=== PATIENT | female | born 1990 | race Hispanic/Latino ===

== ENCOUNTER 2018-05-04 04:39 | Emergency (ER) | payer SELFPAY ==
[2018-05-04 04:54] VITALS: TEMP 98.1
[2018-05-04] MEDS ORDERED: Sodium Chloride 0.9% 1,000 ML IV STA (05:03)
--- NOTE | 2018-05-04 05:23 | ED PDOC ---
HPI: Back Chief Complaint (Provider): Low back pain x 2 days History Per: Patient History/Exam Limitations: no limitations Onset/Duration Of Symptoms: Days Current Symptoms Are (Timing): Still Present Full Body Front + Back: 1 - Pain 2 - Radiation 3 - Radiation Severity: Severe Pain Scale Rating Of: 10 Previous Symptoms: None Associated Symptoms: None Additional Complaint(s): 27 yo female presents with low back pain which radiated to the front lower abdomen for 2 days. PT states she has never had pain like this in the past. Pt states the pain comes and goes but when it comes nothing makes it better or worse. PT has been medicating with tylenol which has not been helping. No fall, no trauma. Pt was diagnosed with MS 2 weeks ago and was admitted for IV steroids. Pt states 9 days ago she had a lumbar cartridge belt puncher in hospital. Pt reports headache after LP but only localized back pain. Pt was sent home and continued a taper of PO steroids. PT states the last dose was on Saturday, when the back pain started. Pt denies new numbness/tingling but states her legs have hand some tingling the last few weeks which she contributes to MS. Pt also reports the sensation of having to go to the restroom. Pt states she is also nauseous when the pain comes. <Keisha Haq - Last Filed: 05/04/18 05:17> <Kasi Marr - Last Filed: 05/04/18 06:53> Time Seen by Provider: 05/04/18 04:48 Chief Complaint (Nursing): Back Pain Past Medical History Reviewed: Historical Data, Nursing Documentation, Vital Signs Vital Signs: Last Vital Signs Temp 98.1 F 05/04/18 04:48 Pulse 78 05/04/18 04:48 Resp 18 05/04/18 04:48 BP 117/78 05/04/18 04:48 Pulse Ox 98 05/04/18 04:48 - Medical History PMH: No Chronic Diseases - Surgical History Surgical History: No Surg Hx - Family History Family History: States: No Known Family Hx - Living Arrangements Living Arrangements: With Family - Social History Current smoker - smoking cessation education provided: No <Keisha Haq - Last Filed: 05/04/18 05:17> Vital Signs: Last Vital Signs Temp 98.1 F 05/04/18 04:48 Pulse 78 05/04/18 04:48 Resp 18 05/04/18 04:48 BP 117/78 05/04/18 04:48 Pulse Ox 98 05/04/18 05:25 <Kasi Marr - Last Filed: 05/04/18 06:53> - Home Medications Home Medications: Ambulatory Orders Medication Instructions Recorded Cyclobenzaprine [Cyclobenzaprine 10 mg PO BID #15 tab 05/04/18 HCl] RX: Ibuprofen [Motrin Tab] 600 mg PO Q6 #30 tab 05/04/18 RX: Levofloxacin [Levaquin] 750 mg PO DAILY #7 tablet 05/04/18 - Allergies Allergies/Adverse Reactions: Allergies Allergy/AdvReac Type Severity Reaction Status Date / Time No Known Allergies Allergy Verified 05/04/18 04:48 Review of Systems ROS Statement: Except As Marked, All Systems Reviewed And Found Negative Constitutional: Negative for: Fever, Chills Gastrointestinal: Positive for: Nausea, Abdominal Pain Genitourinary Female: Positive for: Other. Negative for: Dysuria Musculoskeletal: Positive for: Back Pain <Keisha Haq - Last Filed: 05/04/18 05:17> Physical Exam - Reviewed Nursing Documentation Reviewed: Yes Vital Signs Reviewed: Yes - Physical Exam Appears: Positive for: Well, Non-toxic, No Acute Distress Head Exam: Positive for: ATRAUMATIC, NORMAL INSPECTION, NORMOCEPHALIC Skin: Positive for: Normal Color, Warm, DRY Eye Exam: Positive for: Normal appearance ENT: Positive for: Normal ENT Inspection Neck: Positive for: Normal, Painless ROM Cardiovascular/Chest: Positive for: Regular Rate, Rhythm Respiratory: Positive for: Normal Breath Sounds. Negative for: Accessory Muscle Use, Respiratory Distress Gastrointestinal/Abdominal: Positive for: Normal Exam, Soft, Other (Pt states when palpating the abdomen "its doesn't feel good", but denies pain). Negative for: Tenderness Back: Positive for: Normal Inspection, Other (No erythema or edema around the LP site.). Negative for: L CVA Tenderness, R CVA Tenderness, Vertebral Tenderness, Muscle Spasm Extremity: Positive for: Normal ROM Neurologic/Psych: Positive for: Alert, Oriented <Keisha Haq - Last Filed: 05/04/18 05:17> - ECG O2 Sat by Pulse Oximetry: 98 <Keisha Haq - Last Filed: 05/04/18 05:17> - Laboratory Results Result Diagrams: 05/04/18 05:31 05/04/18 05:31 <Kasi Marr - Last Filed: 05/04/18 06:53> Medical Decision Making Medical Decision Making: Case discussed with Dr. Marr. Labs and urine ordered. <Keisha Haq - Last Filed: 05/04/18 05:17> Medical Decision Making: Patient re-evaluated at bedside, states she's feeling much better. Patient has moderate UTI, will prescribe Levoquin. Advised patient to followup with her doctor, Dr. Sheikh in 2-3 days for checkup, return precautions were discussed. Patient very well appearing, pleasant. Will give IV dose of levoquin and d/c after. <Kasi Marr - Last Filed: 05/04/18 06:53> Disposition - Patient ED Disposition Is Patient to be Admitted: Transfer of Care - Disposition Disposition: Transfer of Care Disposition Time: 06:00 <Keisha Haq - Last Filed: 05/04/18 05:17> - Disposition Disposition: Routine/Home Disposition Time: 06:52 <Kasi Marr - Last Filed: 05/04/18 06:53> - Clinical Impression Clinical Impression: Back pain, UTI (urinary tract infection) - Disposition Referrals: [facility] [Outside] Condition: STABLE Prescriptions: Cyclobenzaprine [Cyclobenzaprine HCl] 10 mg PO BID #15 tab RX: Ibuprofen [Motrin Tab] 600 mg PO Q6 #30 tab RX: Levofloxacin [Levaquin] 750 mg PO DAILY #7 tablet Instructions: Urinary Tract Infections in Adults Forms: JjContatta Dolores ([employer])
[2018-05-04 05:40] LABS: BASO # 0.1 K/uL (0.0-0.2); BASO % 0.9 % (0.0-2.0); EOS # 0.2 K/uL (0.0-0.7); HEMOGLOBIN 14.4 g/dL (12.0-16.0); LYMPH # 1.7 K/uL (1.0-4.3); LYMPH % 10.4 % (20.0-40.0); MEAN CELL VOLUME 89.4 fl (81.0-99.0); MEAN CORPUSCULAR HEMOGLOBIN 30.1 pg (27.0-31.0); MEAN CORPUSCULAR HGB CONC 33.7 g/dL (33.0-37.0); MEAN PLATELET VOLUME 8.4 fl (7.2-11.7); MONO # 1.3 K/uL (0.0-0.8); MONO % 8.1 % (0.0-10.0); NEUT # 12.7 K/uL (1.8-7.0); NEUT % 79.6 % (50.0-75.0); NRBC % 0.1 % (0.0-0.0); RBC 4.79 Mil/uL (3.80-5.20); RED CELL DISTRIBUTION WIDTH 13.1 % (11.5-14.5); WHITE BLOOD COUNT 15.9 K/uL (4.8-10.8)
[2018-05-04 05:55] LABS: ALB/GLOB RATIO 1.2 (1.0-2.1); ALBUMIN 4.2 g/dL (3.5-5.0); ALT/SGPT 50 U/L (9-52); AST/SGOT 25 U/L (14-36); BLOOD UREA NITROGEN 13 mg/dl (7-17); CALCIUM 9.4 mg/dL (8.4-10.2); GFR AFRICAN-AMERICAN > 60; GFR NON-AFRICAN AMERICAN > 60
[2018-05-04 06:36] LABS: URINE BACTERIA FEW (<OCC); URINE BILIRUBIN NEGATIVE (NEGATIVE); URINE BLOOD LARGE (NEGATIVE); URINE CLARITY TURBID (Clear); URINE COLOR YELLOW (YELLOW); URINE GLUCOSE (UA) NEG (Normal); URINE LEUKOCYTE ESTERASE LARGE Leu/uL (Negative); URINE PROTEIN 100 mg/dL (NEGATIVE); URINE UROBILINOGEN 0.2-1.0 mg/dL (0.2-1.0)
[2018-05-04] MEDS ORDERED: levoFLOXacin 750 mg in D5W 150 ML BAG IVPB STA (06:50)
[2018-05-04] MEDS ORDERED: levoFLOXacin 750 mg in D5W 750 MG/150 ML BAG IVPB STA (06:55)
[2018-05-04] MEDS ORDERED: levoFLOXacin 750 mg in D5W 750 MG/150 ML BAG IVPB ONE (07:05)
[2018-05-04 09:02] VITALS: BP 125/80; PULSE 75; RESP 16; O2SAT 100
== END 2018-05-04 09:02 | disposition home or self-care (01) ==
LOC: H.ER 04:39
DX: M54.5 Low back pain (principal); N39.0 Urinary tract infection, site not specified
CPT/HCPCS: 80053; 81003; 85025; 87086; 87181; 96374; 99284; J1885; J7030